=== PATIENT | female | born 1980 | race Caucasian/White ===

== ENCOUNTER 2016-08-24 13:09 | Emergency (ER) | payer OTHER | END 2016-08-24 13:38 | disposition home or self-care (01) | LOC: ER 13:09 | DX: S93.411A Sprain of calcaneofibular ligament of right ankle, initial encounter (principal); F17.210 Nicotine dependence, cigarettes, uncomplicated; Z79.899 Other long term (current) drug therapy; X50.1XXA Overexertion from prolonged static or awkward postures, initial encounter; Y92.009 Unspecified place in unspecified non-institutional (private) residence as the place of occurrence of the external cause ==

== ENCOUNTER 2016-12-02 07:03 | Emergency (ER) | payer OTHER | END 2016-12-02 11:00 | disposition other institution (70) | LOC: ER 07:03 | DX: S37.052A Moderate laceration of left kidney, initial encounter (principal); S30.810A Abrasion of lower back and pelvis, initial encounter; F17.210 Nicotine dependence, cigarettes, uncomplicated; Y08.89XA Assault by other specified means, initial encounter; Y92.009 Unspecified place in unspecified non-institutional (private) residence as the place of occurrence of the external cause | CPT/HCPCS: 36415; 96361; 96374; 96375; 96376; Q9967 ==